=== PATIENT | male | born 1985 | race African-American/Black ===

== ENCOUNTER 2023-03-05 12:55 | Emergency (ER) | payer MEDICAID, OTHER ==
[~2023-03-05] VITALS: Ht 188 cm; Wt 132.4 kg
[2023-03-05 13:43] VITALS: BP 154/76
[2023-03-05] MEDS ORDERED: KETOROLAC TROMETH 30 MG/ML 1ML VIAL IV ONE (14:00)
[2023-03-05] MEDS ORDERED: cefTRIAXone 1GM/50ML D5W 50 ML IV ONE ×2 (14:00)
[2023-03-05] MEDS ORDERED: methylPREDNISolone SOD SUCC 40 MG/ML VL IV ONE (14:00)
[2023-03-05] MEDS ORDERED: methylPREDNISolone SOD SUCC 125 MG/2 ML VL ONE (14:21)
[2023-03-05] MEDS ORDERED: SODIUM CHLORIDE 0.9% 500 ML IV ONE (15:00)
[2023-03-05] MEDS ORDERED: LIDO2SOL26 MT (15:26)
[2023-03-05] MEDS ORDERED: CLIN300C70 PO (15:26)
== END 2023-03-05 15:36 | disposition home or self-care (01) ==
LOC: ER 12:55
DX: J03.90 Acute tonsillitis, unspecified (principal); Z79.899 Other long term (current) drug therapy
CPT/HCPCS: 87880; 96365; 96375; 99284; J0696; J1885; J2930; J7040

== ENCOUNTER 2024-03-16 12:00 | Emergency (ER) | payer MEDICAID ==
[~2024-03-16] VITALS: Ht 188 cm; Wt 143.9 kg
[~2024-03-16 12:00] MED LIST: CLIN1CAP70 PO; LIDO2SOL26 MT
[2024-03-16 12:23] VITALS: TEMP 98.3
[2024-03-16] MEDS: methylPREDNISolone SOD SUCC 125 MG/2 ML VL IM ONE (12:45)
[2024-03-16] MEDS ORDERED: TOB03OS OP (12:53)
[2024-03-16] MEDS ORDERED: METH4PAK PO (12:53)
[2024-03-16 13:06] VITALS: BP 115/75; PULSE 72; RESP 18; O2SAT 97
[2024-03-16] MEDS: ACETAMINOPHEN 500 MG TAB PO ONE (13:27)
== END 2024-03-16 13:43 | disposition home or self-care (01) ==
LOC: ER 12:00
DX: T78.49XA Other allergy, initial encounter (principal); H10.31 Unspecified acute conjunctivitis, right eye; Z79.899 Other long term (current) drug therapy; X58.XXXA Exposure to other specified factors, initial encounter
CPT/HCPCS: 96372; 99283; J2919

== ENCOUNTER 2024-05-15 11:30 | Emergency (ER) | payer OTHER, MEDICAID ==
[~2024-05-15] VITALS: Ht 185.4 cm; Wt 142.9 kg
[~2024-05-15 11:30] MED LIST changes: +METH4PAK PO; +TOB03OS OP
[2024-05-15 15:58] VITALS: BP 109/76; PULSE 98; RESP 14; TEMP 97.6; O2SAT 96
[2024-05-15] MEDS ORDERED: ERY05OO OP (15:59)
[2024-05-15] MEDS: IBUPROFEN 800 MG TAB PO ONE (16:05)
[2024-05-15] MEDS: ERYTHROMY OPTH OINT 5mg/gm 1gm or 3.5gm tube OP ONE (16:05)
== END 2024-05-15 16:19 | disposition home or self-care (01) ==
LOC: ER 11:30
DX: H10.89 Other conjunctivitis (principal); H00.013 Hordeolum externum right eye, unspecified eyelid; J45.909 Unspecified asthma, uncomplicated; Z79.899 Other long term (current) drug therapy